=== PATIENT | female | born 1980 | race African-American/Black ===

== ENCOUNTER 2023-07-22 09:27 | Outpatient (CLI) | payer MEDICARE | END 2023-07-22 09:28 | disposition home or self-care (01) | LOC: CSHWCC 09:27 | PROVIDERS: ATTEND Preventive Medicine Undersea and Hyperbaric Medicine | DX: L89.154 Pressure ulcer of sacral region, stage 4 (principal); L89.304 Pressure ulcer of unspecified buttock, stage 4; L89.603 Pressure ulcer of unspecified heel, stage 3; L89.892 Pressure ulcer of other site, stage 2; S06.2X9D Diffuse traumatic brain injury with loss of consciousness of unspecified duration, subsequent encounter; E08.65 Diabetes mellitus due to underlying condition with hyperglycemia | CPT/HCPCS: 11043; 97605; G0463; 99214 ==